=== PATIENT | male | born 1990 | race Caucasian/White ===

== ENCOUNTER 2018-05-01 21:23 | Emergency (ER) | payer OTHER, MEDICAID, SELFPAY ==
[2018-05-01 21:25] VITALS: BP 136/70; PULSE 80; RESP 12; TEMP 36.9; O2SAT 97
--- NOTE | 2018-05-01 21:25 | ED_ITS ---
HPI - Seizure General Chief Complaint: Seizure Stated Complaint: Seizure Time Seen by Provider: 05/01/18 21:24 Source: patient and EMS Mode of arrival: EMS Limitations: no limitations History of Present Illness HPI Narrative: patient is a 27-year-old male brought in by EMS for concerns of seizure-like activity. As reported by them that the patient's family members reported that he had 2 min of generalized shaking. The patient stated that he remembers feeling lightheaded but does not remember any of the other events. Was reported by EMS the patient's family members thought that he was confused after the event. No reports of loss of bowel or bladder. Patient states that now he feels fine other than having a headache. He states that he did have what he thought was a seizure approximately 10 years ago but had no follow-up medical visit after that. Related Data Home Medications Medication Instructions Recorded Confirmed No Known Home Medications 05/01/18 05/01/18 Allergies Allergy/AdvReac Type Severity Reaction Status Date / Time No Known Drug Allergies Allergy Verified 05/01/18 21:29 Review of Systems Constitutional Denies fatigue, Denies fever(s), Reports headache(s), Denies lethargy and Denies malaise Eyes Denies blurry vision and Denies diplopia ENT Ears, Nose, Mouth, and Throat: Reports dizziness and Reports headache(s) Cardiovascular Denies chest pain and Denies dyspnea Respiratory Denies dyspnea Gastrointestinal Gastrointestinal: Denies abdominal pain, Denies nausea and Denies vomiting Genitourinary Denies dysuria Musculoskeletal Denies myalgias and Denies arthralgias Integumentary/Breasts Denies rash Neurologic Reports dizziness, Reports headache(s), Denies focal weakness and Reports seizure-like activity Endocrine Denies fatigue [facility] Medical History Healthy adult (Acute) Surgical History No pertinent past surgical history (Acute) Social History Smoking Status: Current every day smoker Exam Initial Vital Signs Initial Vital Signs: Vital Signs Temperature 98.4 F 05/01/18 21:25 Pulse Rate 80 05/01/18 21:25 Respiratory Rate 12 05/01/18 21:25 Blood Pressure 136/70 05/01/18 21:25 Pulse Oximetry 97 05/01/18 21:25 Const General: cooperative, healthy appearing, comfortable, well developed, well groomed and No acute distress Orientation: alert, awake and oriented x3 HENMT Head: normal to inspection and normocephalic Resp Effort & Inspection: normal respiratory effort Cardio Rate: regular rate Rhythm: regular rhythm GI Inspection: non-distended Palpation: soft Skin Lesions: no lesions Rashes: no rashes Neuro General: alert, awake and oriented x3 Cognition: normal cognition Speech: speech normal Gait: normal gait Motor: muscle tone normal throughout Sensory Exam: no sensory deficits noted Extrem General: normal to inspection and capillary refill normal Psych Appearance: grossly normal and well kempt Course Orders Ordered: ED Orders 05/01/18 21:25 CT head/brain wo con Stat 05/01/18 22:05 Basic Metabolic Panel Stat Complete Blood Count AUTO DIFF Stat Prolactin Stat Vital Signs - 8 hr 05/01/18 21:25 Temperature 98.4 F Pulse Rate 80 Respiratory Rate 12 Blood Pressure 136/70 Pulse Oximetry 97 MDM - Seizure Lab Data Attestation: I reviewed the patient's lab results. Result diagrams: 05/01/18 22:05 05/01/18 22:05 Lab Results 05/01/18 05/01/18 Range/Units 22:05 22:05 WBC 10.5 (4.5-11.0) X10^3/uL RBC 4.70 (4.5-5.9) X10^6/uL Hgb 14.8 (13.5-17.5) g/dL Hct 43.7 (41-53) % MCV 93.0 (80-100) fL MCH 31.6 (26-34) PG MCHC 33.9 (30-36) % RDW 12.8 (11.6-14.8) % Plt Count 280 (150-400) X10^3/uL Neut % (Auto) 60.8 (50-75) % Lymph % (Auto) 24.6 L (25-40) % [place] % (Auto) 6.3 (3-14) % Eos % (Auto) 7.4 H (2-4) % Baso % (Auto) 0.9 (0-2) % Neut # (Auto) 6400 H (2090-8194) /uL Sodium 144 (137-145) mmol/L Potassium 3.9 (3.4-5.1) mmol/L Chloride 105 (98-107) mmol/L Carbon Dioxide 27 (22-32) mmol/L BUN 11 (9-20) mg/dL Creatinine 0.90 (0.66-1.25) mg/dL Estimated GFR > 60.0 (>60) mL/min BUN/Creatinine Ratio 12.2 (6-22) Glucose 110 H (70-100) mg/dL Calcium 8.7 (8.4-10.2) mg/dL Prolactin 10.5 (3.7-17.9) ng/mL Imaging Data CT scan - head: Radiologist's impression: [address] [address] [address] Scan Report Signed Patient: Geovany Parsons [facility]#: [id number] : 1990Acct:[id number] Age/Sex: 27 / MDate of Service: 05/01/18 Loc: ED Accession Number: [id number] Procedure: CT head/brain wo con Ordering Provider: Pedro Luis Gaitan D.O. PROCEDURE: CT HEAD/BRAIN WO CON INDICATIONS: seizure-like activity TECHNIQUE: Noncontrast 4.5 mm thick angled axial sections acquired from the foramen magnum to the vertex, with coronal and sagittal reformats. For radiation dose reduction, the following was used: automated exposure control, adjustment of mA and/or kV according to patient size. COMPARISON: None. FINDINGS: Image quality: Excellent. CSF spaces: Basal cisterns are patent. No extra-axial fluid collections. Ventricles are normal in size and shape. Brain: No midline shift. No intracranial masses or hemorrhage. Jacobo-white matter interface is normal. Skull and face: Calvarium and visualized facial bones are intact, without suspicious lesions. Sinuses: Visualized sinuses and mastoids are clear. IMPRESSION: No acute intracranial process. Dictated by: Miguel A Vásquez M.D. on 05/01/2018 at 21:53 Approved by: Miguel A Vásquez M.D. on 05/01/2018 at 21:57 MDM Narrative Medical decision making narrative: patient with a normal neurologic exam here in the emergency department. Head CT is unremarkable. Labs unremarkable. Does not have an elevated prolactin level. Patient did have a reported seizure approximately 10 years ago. Uncertain if the event earlier today was a seizure however does sound like it. Will hold on starting any medications currently. Patient was instructed he needed to locate a primary care doctor in the area to discuss further management and treatment. He was given return precautions. He expressed understanding and agreement with plan Discharge Plan Departure Patient Disposition: Home Clinical Impression: Seizure-like activity Instructions: DI for Seizure (Not Epilepsy/Seizure Disorder) Activity Restrictions/Additional Instructions: Your labs and head CT today were unremarkable. I do recommend you contact one of the primary doctor's offices here in the local area to establish care. Return to the emergency department for any new or worsening symptoms Prescriptions: No Action No Known Home Medications RF: 0
--- NOTE | 2018-05-01 21:32 | PC.NURSE ---
Pt walked into ED with EMS. slow and steady gate. denies pain, sob, chest discomfort. reports this happened to me 10 years ago. I should get this checked out. Pt on stretcher with seizure precautions, pads on bed, suction at bedside, attached to monitor.
[2018-05-01 22:23] LABS: Add Manual Diff / Slide Review NO; Basophils Percent Auto 0.9 % (0-2); Eosinophils Percent Auto 7.4 % (2-4); Hematocrit 43.7 % (41-53); Hemoglobin 14.8 g/dL (13.5-17.5); Lymphocytes Percent Auto 24.6 % (25-40); Mean Corpuscular HGB Conc 33.9 % (30-36); Mean Corpuscular Hemoglobin 31.6 PG (26-34); Monocytes Percent Auto 6.3 % (3-14); Neutrophils Absolute Auto 6400 /uL (3000-5900); Neutrophils Percent Auto 60.8 % (50-75); Platelet Count 280 X10^3/uL (150-400); Red Cell Distribution Width 12.8 % (11.6-14.8); White Blood Cell Count 10.5 X10^3/uL (4.5-11.0)
--- NOTE | 2018-05-01 22:26 | PC.NURSE ---
Pt refused IV, provider notified, lab draw requested and done.
[2018-05-01 22:32] LABS: BUN Creatinine Ratio 12.2 (6-22); Blood Urea Nitrogen 11 mg/dL (9-20); Calcium 8.7 mg/dL (8.4-10.2); Carbon Dioxide 27 mmol/L (22-32); Chloride 105 mmol/L (98-107); Estimated Glomerular Filt Rate > 60.0 mL/min (>60); Glucose 110 mg/dL (70-100); HEMOLYSIS < 15 (0-50); Potassium 3.9 mmol/L (3.4-5.1); Sodium 144 mmol/L (137-145)
[2018-05-01 22:49] LABS: Prolactin 10.5 ng/mL (3.7-17.9)
[2018-05-01 22:51] VITALS: BP 108/58; PULSE 85; RESP 14; O2SAT 98
== END 2018-05-01 23:05 | disposition home or self-care (01) ==
PROVIDERS: Emergency Provider Emergency Medicine
DX: R56.9 Unspecified convulsions (principal)
CPT/HCPCS: 36415; 70450; 80048; 84146; 85025; 99282; 99284